=== PATIENT | female | born 1945 | race Caucasian/White ===

== ENCOUNTER 2022-11-17 03:25 | Inpatient (IN) | payer MEDICARE ==
[~2022-11-17] VITALS: Ht 152.4 cm; Wt 63.0 kg
[2022-11-17 03:30] VITALS: BP 137/79
[2022-11-17 07:44] VITALS: BP 149/70
[2022-11-17] MEDS ORDERED: ACETAMINOPHEN 325 MG TABLET PO PRN (09:45)
[2022-11-17] MEDS ORDERED: HYDROCODONE/APAP 5-325MG TABLET PO PRN (10:45)
[2022-11-17] MEDS ORDERED: ONDANSETRON 4 MG/2 ML VIAL IV PRN (10:45)
[2022-11-17] MEDS ORDERED: TRAMADOL HCL 50 MG TABLET PO PRN (10:45)
[2022-11-17] MEDS ORDERED: IV NORMAL SALINE 100 ML BAG IV PRN ×2 (11:00)
[2022-11-17] MEDS: IV NS 1000 ML 1,000 ML IV PRN (11:11)
[2022-11-17 11:15] LABS: HEMATOCRIT 37.4 % (31.2-41.9); MEAN CORPUSCULAR HEMOGLOBIN 32.8 uug (24.7-32.8); MEAN CORPUSCULAR VOLUME 99.7 fL (75.5-95.3); PLATELET COUNT (AUTO) 301 K/uL (179-408)
[2022-11-17] MEDS ORDERED: IV NS 1000 ML 1,000 ML IV PRN (11:15)
[2022-11-17] MEDS: DOCUSATE SODIUM 100 MG CAPSULE PO SCH ×2 (11:16→20:42)
[2022-11-17] MEDS ORDERED: LATA2.5D15 EACHEYE (11:32)
[2022-11-17] MEDS ORDERED: CITA10TA9 PO (11:32)
[2022-11-17] MEDS ORDERED: ATOR10TA PO (11:32)
[2022-11-17] MEDS ORDERED: CYAN100T44 PO (11:44)
[2022-11-17] MEDS ORDERED: CALC-1026 PO (11:44)
[2022-11-17] MEDS ORDERED: IBAN150T16 PO (11:44)
[2022-11-17] MEDS ORDERED: DORZ10DR11 EACHEYE (11:44)
[2022-11-17] MEDS ORDERED: UBID30CA21 PO (11:44)
[2022-11-17] MEDS ORDERED: CHOL400T32 PO (11:44)
[2022-11-17] MEDS ORDERED: OMEG1CAP PO (11:44)
[2022-11-17] MEDS ORDERED: AMLO2.5T4 PO (11:44)
[2022-11-17 11:50] LABS: MAGNESIUM 2.2 mg/dL (1.8-2.4); PHOSPHOROUS 3.1 mg/dL (2.5-4.9)
[2022-11-17] MEDS ORDERED: CITA20TA19 PO (13:02)
[2022-11-17 15:41] VITALS: BP 107/62
[2022-11-17] MEDS: CALCIUM CARBONATE 500 MG TABLET PO SCH (18:20)
[2022-11-17] MEDS: AMLODIPINE 2.5 MG TABLET PO SCH (18:25)
[2022-11-17] MEDS: DORZOLAMIDE/TIMOLOL OPHT DROP 10 ML BOTTLE EACHEYE SCH ×2 (20:41→20:54)
[2022-11-17] MEDS: LATANOPROST OPHT DROP 2.5 ML BOTTLE EACHEYE SCH (20:42)
[2022-11-17] MEDS: ATORVASTATIN 10 MG TABLET PO SCH (20:42)
[2022-11-17] MEDS: CITALOPRAM 20 MG TABLET PO SCH (20:42)
[2022-11-17] MEDS: MELATONIN 3 MG TABLET PO SCH (20:42)
--- NOTE | 2022-11-17 20:54 | NUR ---
Pt refused Dorzolamide. She prefers it during the day only.
[2022-11-18 08:08] LABS: HEMATOCRIT 33.3 % (31.2-41.9); MEAN CORPUSCULAR HEMOGLOBIN 33.3 uug (24.7-32.8); MEAN CORPUSCULAR VOLUME 99.8 fL (75.5-95.3); PLATELET COUNT (AUTO) 240 K/uL (179-408)
[2022-11-18 08:20] LABS: CARBON DIOXIDE 26 mmol/L (21-32); CHLORIDE 102 mmol/L (98-107); CREATININE 0.5 mg/dL (0.6-1.3); GLUCOSE 115 mg/dL (74-106); MAGNESIUM 2.3 mg/dL (1.8-2.4); PHOSPHOROUS 2.6 mg/dL (2.5-4.9); POTASSIUM 3.9 mmol/L (3.5-5.1); UREA NITROGEN, BLOOD 14 mg/dL (7-18)
[2022-11-18] MEDS: DOCUSATE SODIUM 100 MG CAPSULE PO SCH ×2 (08:21→20:52)
[2022-11-18] MEDS: CHOLECALCIFEROL 400 UNITS TABLET PO SCH (08:22)
[2022-11-18] MEDS: DORZOLAMIDE/TIMOLOL OPHT DROP 10 ML BOTTLE EACHEYE SCH ×2 (08:22→19:35)
[2022-11-18] MEDS: CALCIUM CARBONATE 500 MG TABLET PO SCH (08:22)
[2022-11-18] MEDS: OMEGA-3 FATTY ACIDS/FISH OIL CAPSULE PO SCH (08:22)
[2022-11-18] MEDS: AMLODIPINE 2.5 MG TABLET PO SCH (08:30)
[2022-11-18] MEDS: CYANOCOBALAMIN 1,000 MCG TABLET PO SCH (08:37)
[2022-11-18 08:59] LABS: NEUTROPHILS % (MANUAL) 0 % (42-75)
[2022-11-18] MEDS ORDERED: CYANOCOBALAMIN 100 MCG TABLET PO SCH (09:00)
[2022-11-18] MEDS ORDERED: UBIDECARENONE 30 MG PO SCH (09:00)
[2022-11-18 11:49] VITALS: BP 117/55
[2022-11-18] MEDS: IV NS 1000 ML 1,000 ML IV PRN (14:38)
--- NOTE | 2022-11-18 15:10 | NUR ---
Pt asked for Sennokot because she hasn't have a bowel movement since her admission, for 2 days. No pain at the moment, call light within reach. Her daughter is at bedside.
[2022-11-18] MEDS ORDERED: SENNOSIDES 1 TABLET PO ONE (15:15)
[2022-11-18 16:00] VITALS: BP 122/67
[2022-11-18] MEDS ORDERED: DORZOLAMIDE/TIMOLOL OPHT DROP 10 ML BOTTLE EACHEYE SCH (18:30)
--- NOTE | 2022-11-18 19:00 | NUR ---
Received Pt from Day shift. Pt is A&Ox4 and is cooperative. SR on tele. Pt on Rm Air. Skin is intact. Safety measures in place. Will continue to monitor.
[2022-11-18 20:00] VITALS: BP 117/64
[2022-11-18] MEDS: CITALOPRAM 20 MG TABLET PO SCH (20:52)
[2022-11-18] MEDS: ATORVASTATIN 10 MG TABLET PO SCH (20:53)
[2022-11-18] MEDS: MELATONIN 3 MG TABLET PO SCH (20:53)
[2022-11-18] MEDS: LATANOPROST OPHT DROP 2.5 ML BOTTLE EACHEYE SCH (20:54)
[2022-11-19] VITALS: BP 120/60
[2022-11-19 04:00] VITALS: BP 111/78
--- NOTE | 2022-11-19 06:43 | NUR ---
End of shift Note: Pt is A&Ox4 and is cooperative. SR on tele. Pt on Rm Air. Skin is intact. No S&S of distress. Safety measures in place. Will continue to monitor.
[2022-11-19 07:54] LABS: HEMATOCRIT 31.2 % (31.2-41.9); MEAN CORPUSCULAR HEMOGLOBIN 33.7 uug (24.7-32.8); MEAN CORPUSCULAR VOLUME 99.2 fL (75.5-95.3); PLATELET COUNT (AUTO) 229 K/uL (179-408)
[2022-11-19 08:16] LABS: CARBON DIOXIDE 24 mmol/L (21-32); CHLORIDE 104 mmol/L (98-107); CREATININE 0.4 mg/dL (0.6-1.3); GLUCOSE 113 mg/dL (74-106); MAGNESIUM 1.9 mg/dL (1.8-2.4); PHOSPHOROUS 2.7 mg/dL (2.5-4.9); POTASSIUM 3.7 mmol/L (3.5-5.1); UREA NITROGEN, BLOOD 11 mg/dL (7-18)
[2022-11-19 08:21] LABS: NEUTROPHILS % (MANUAL) 0 % (42-75)
[2022-11-19] MEDS: CHOLECALCIFEROL 400 UNITS TABLET PO SCH (09:39)
[2022-11-19] MEDS: DOCUSATE SODIUM 100 MG CAPSULE PO SCH ×2 (09:39→20:46)
[2022-11-19] MEDS: OMEGA-3 FATTY ACIDS/FISH OIL CAPSULE PO SCH (09:40)
[2022-11-19] MEDS: CALCIUM CARBONATE 500 MG TABLET PO SCH (09:40)
[2022-11-19] MEDS: AMLODIPINE 2.5 MG TABLET PO SCH (09:40)
[2022-11-19] MEDS: CYANOCOBALAMIN 1,000 MCG TABLET PO SCH (09:40)
[2022-11-19] MEDS: DORZOLAMIDE/TIMOLOL OPHT DROP 10 ML BOTTLE EACHEYE SCH ×2 (09:41→17:51)
[2022-11-19 11:35] VITALS: BP 96/65
[2022-11-19 15:45] VITALS: BP 136/58
[2022-11-19 20:25] VITALS: BP 143/65
[2022-11-19] MEDS: ATORVASTATIN 10 MG TABLET PO SCH (20:46)
[2022-11-19] MEDS: MELATONIN 3 MG TABLET PO SCH (20:46)
[2022-11-19] MEDS: CITALOPRAM 20 MG TABLET PO SCH (20:46)
[2022-11-19] MEDS: LATANOPROST OPHT DROP 2.5 ML BOTTLE EACHEYE SCH (20:49)
[2022-11-20 00:11] VITALS: BP 122/64
[2022-11-20 04:09] VITALS: BP 153/81
--- NOTE | 2022-11-20 07:49 | NUR ---
AAOx4. Discharge to [facility] on 11/20/22. Follow up on Dr. Scanlon on [facility]. No signs of distress or c/o pain. IV site intact and patent. BRP. Safety and comfort measures maintained.
[2022-11-20] MEDS: CHOLECALCIFEROL 400 UNITS TABLET PO SCH (08:55)
[2022-11-20] MEDS: DOCUSATE SODIUM 100 MG CAPSULE PO SCH (08:56)
[2022-11-20] MEDS: OMEGA-3 FATTY ACIDS/FISH OIL CAPSULE PO SCH (08:56)
[2022-11-20] MEDS: AMLODIPINE 2.5 MG TABLET PO SCH (08:56)
[2022-11-20] MEDS: CYANOCOBALAMIN 1,000 MCG TABLET PO SCH (08:56)
[2022-11-20] MEDS: DORZOLAMIDE/TIMOLOL OPHT DROP 10 ML BOTTLE EACHEYE SCH (08:57)
[2022-11-20] MEDS: CALCIUM CARBONATE 500 MG TABLET PO SCH (08:57)
[2022-11-20 09:10] LABS: CARBON DIOXIDE 27 mmol/L (21-32); CHLORIDE 102 mmol/L (98-107); CREATININE 0.4 mg/dL (0.6-1.3); GLUCOSE 105 mg/dL (74-106); UREA NITROGEN, BLOOD 9 mg/dL (7-18)
[2022-11-20 11:28] VITALS: BP 120/62
--- NOTE | 2022-11-20 14:45 | NUR ---
RECEIVED REPORT FROM MIKE ASHFORD SHIFT RN. PATIENT IS ALERT & ORIENTED X4 AND ABLE TO SPEAK [place]. PATIENT TOLERATES PO MEDICATIONS AND DIET WELL. VITAL SIGNS WITH NORMAL LIMITS. PATIENT VOIDS ADEQUATELY. PATIENT DENIES PAIN. NO ACUTE DISTRESS NOTED DURING SHIFT. RN NOTIFY PATIENT OF HER [facility]CHARGE TO [facility]. PATIENT AGREEABLE TO TRANSFER. PATIENT SIGNED BELONGINGS LIST. DISCHARGE EDUCATION PROVIDED TO PATIENT AND DAUGHTER. PATIENT SIGNED DISCHARGE PAPERWORK. ALL QUESTIONS ANSWERED. RN GAVE REPORT TO ZEKE WORKMAN AT [facility]. ALL QUESTIONS ANSWERED. PATIENT REMOVED IV. CATHETER TIP INTACT. RN GAVE REPORT TO EMT FROM [facility]. ALL QUESTIONS ANSWERED. PATIENT LEFT WITH DAUGHTER, AND [facility] IN STABLE CONDITION AT 1445.
== END 2022-11-20 14:45 | DRG 641 ==
LOC: TELE3 03:25
PROVIDERS: ADMIT Internal Medicine; ATTEND Internal Medicine
DX: E87.1 Hypo-osmolality and hyponatremia (principal); S02.92XA Unspecified fracture of facial bones, initial encounter for closed fracture; S52.592A Other fractures of lower end of left radius, initial encounter for closed fracture; S42.254A Nondisplaced fracture of greater tuberosity of right humerus, initial encounter for closed fracture; I95.1 Orthostatic hypotension; E86.0 Dehydration; H40.9 Unspecified glaucoma; I48.91 Unspecified atrial fibrillation; Z87.11 Personal history of peptic ulcer disease; Z87.891 Personal history of nicotine dependence; Z85.038 Personal history of other malignant neoplasm of large intestine; Z82.49 Family history of ischemic heart disease and other diseases of the circulatory system; Z90.49 Acquired absence of other specified parts of digestive tract; I10 Essential (primary) hypertension; F32.A Depression, unspecified; Z20.822 Contact with and (suspected) exposure to COVID-19; M19.90 Unspecified osteoarthritis, unspecified site; R53.1 Weakness; F41.9 Anxiety disorder, unspecified; M17.12 Unilateral primary osteoarthritis, left knee; E78.5 Hyperlipidemia, unspecified; X58.XXXA Exposure to other specified factors, initial encounter; Y93.9 Activity, unspecified; S02.2XXA Fracture of nasal bones, initial encounter for closed fracture; Y92.009 Unspecified place in unspecified non-institutional (private) residence as the place of occurrence of the external cause
CPT/HCPCS: 36415; 70030-TC; 71045; 73060; 73090; 73110; 73130; 83550; 83735; 84100; 84484; 85025; 85610; 85730; 93005; 93307; 93880; 97535-GO-CO; A4663; G0378; J7040